=== PATIENT | male | born 1990 | race Caucasian/White ===

== ENCOUNTER 2018-01-14 16:56 | Emergency (ER) | payer MEDICAID ==
[~2018-01-14] VITALS: Ht 188 cm; Wt 84.8 kg
[~2018-01-14 16:56] MED LIST: ALBIPROI INH; AZIT500 PO; Amoxicillin500 MG PO; Augmentin 875-1 EACH PO; CEPH500 PO; CLAR500 PO; HYDGUAL120 PO; MUPI2TO TOP; PROACE100 PO; QUET25 PO; RXPROACE PO; SULTRIDS PO; Zofran Odt4 MG SL; Zofran8 MG PO
[2018-01-14] MEDS ORDERED: CEPH500 PO (17:44)
== END 2018-01-14 17:45 | disposition home or self-care (01) ==
LOC: ER 16:56
DX: S51.812A Laceration without foreign body of left forearm, initial encounter (principal); W45.8XXA Other foreign body or object entering through skin, initial encounter; Z88.5 Allergy status to narcotic agent; Z79.2 Long term (current) use of antibiotics; F17.200 Nicotine dependence, unspecified, uncomplicated
CPT/HCPCS: 12031; 99283

== ENCOUNTER 2018-03-12 11:49 | Emergency (ER) | payer SELFPAY ==
[~2018-03-12] VITALS: Ht 188 cm; Wt 90.7 kg
[2018-03-12] MEDS ORDERED: Norco 5-325 Ta1 EACH PO (12:45)
[2018-03-12] MEDS ORDERED: CRUTCH2 XX (12:46)
== END 2018-03-12 13:13 | disposition home or self-care (01) ==
LOC: ER 11:49
DX: S82.831A Other fracture of upper and lower end of right fibula, initial encounter for closed fracture (principal); W17.89XA Other fall from one level to another, initial encounter; Z88.5 Allergy status to narcotic agent; F17.200 Nicotine dependence, unspecified, uncomplicated
CPT/HCPCS: 29515; 73590; 73610; 99283-25

== ENCOUNTER 2018-03-17 19:23 | Emergency (ER) | payer MEDICAID ==
[~2018-03-17] VITALS: Ht 188 cm; Wt 84.8 kg
[~2018-03-17 19:23] MED LIST changes: +CRUTCH2 XX; +Norco 5-325 Ta1 EACH PO
== END 2018-03-17 22:55 | disposition left against medical advice (07) ==
LOC: ER 19:23
DX: Z53.21 Procedure and treatment not carried out due to patient leaving prior to being seen by health care provider (principal)
CPT/HCPCS: 73590; 73610

== ENCOUNTER 2020-12-18 04:25 | Emergency (ER) | payer SELFPAY ==
[~2020-12-18] VITALS: Ht 175.3 cm; Wt 74.8 kg
== END 2020-12-18 05:10 | disposition home or self-care (01) ==
LOC: ER 04:25
DX: S93.401A Sprain of unspecified ligament of right ankle, initial encounter (principal); F17.200 Nicotine dependence, unspecified, uncomplicated; Z88.5 Allergy status to narcotic agent; X50.1XXA Overexertion from prolonged static or awkward postures, initial encounter
CPT/HCPCS: 99283

== ENCOUNTER 2022-09-02 04:31 | Emergency (ER) | payer SELFPAY ==
[~2022-09-02] VITALS: Ht 188 cm; Wt 90.7 kg
[2022-09-02 07:10] LABS: BASOPHILS ABSOLUTE AUTO 0.06 K/mm3 (0.00-0.23); BASOPHILS PERCENT AUTO 0 % (0-2); EOSINOPHILS ABSOLUTE AUTO 0.28 K/mm3 (0.00-0.68); EOSINOPHILS PERCENT AUTO 2 % (0-6); IMMATURE GRAN ABSOLUTE AUTO 0.06 K/mm3 (0.00-0.10); IMMATURE GRAN PERCENT AUTO 0 % (0-1); LYMPHOCYTES ABSOLUTE AUTO 1.82 K/mm3 (0.84-5.20); LYMPHOCYTES PERCENT AUTO 12 % (21-46); MONOCYTES ABSOLUTE AUTO 0.87 K/mm3 (0.16-1.47); MONOCYTES PERCENT AUTO 6 % (4-13); Mean Corpuscular HGB 29.7 pg (26.0-34.0); Mean Corpuscular HGB Conc 33.3 g/dL (31.5-36.5); Mean Corpuscular Volume 89 fL (80-100); NEUTROPHILS ABSOLUTE AUTO 12.02 K/mm3 (1.96-9.15); NEUTROPHILS PERCENT AUTO 80 % (41-73); Platelet Count 294 K/mm3 (150-400); RDW Coefficient Variation 12.4 % (11.7-14.2); RDW Standard Deviation 40.5 fL (35.1-46.3); Red Blood Cell Count 4.38 M/mm3 (4.30-5.90); White Blood Cell Count 15.11 K/mm3 (4.00-11.30)
[2022-09-02 07:25] LABS: Bun/Creatinine Ratio 26.2 (12.0-20.0); Calcium, Blood 8.7 mg/dL (8.5-10.1); Creatinine, Blood 1.07 mg/dL (0.60-1.20); Potassium, Blood 4.1 mmol/L (3.5-5.5)
[2022-09-02] MEDS ORDERED: CLIN300 PO (09:06)
== END 2022-09-02 09:18 | disposition home or self-care (01) ==
LOC: ER 04:31
PROVIDERS: Emergency Medicine
DX: L03.317 Cellulitis of buttock (principal); L03.311 Cellulitis of abdominal wall; F17.210 Nicotine dependence, cigarettes, uncomplicated; Z88.5 Allergy status to narcotic agent
CPT/HCPCS: 36415; 74177; 80048; 85025; A9270; Q9967

== ENCOUNTER 2022-09-10 01:55 | Emergency (ER) | payer SELFPAY ==
[~2022-09-10] VITALS: Ht 188 cm; Wt 90.7 kg
[~2022-09-10 01:55] MED LIST changes: +CLIN300 PO
== END 2022-09-10 03:47 | disposition home or self-care (01) ==
LOC: ER 01:55
DX: K62.89 Other specified diseases of anus and rectum (principal); K64.4 Residual hemorrhoidal skin tags; F17.210 Nicotine dependence, cigarettes, uncomplicated; Z88.5 Allergy status to narcotic agent
CPT/HCPCS: 99282

== ENCOUNTER 2024-01-02 07:49 | Day surgery (SDC) | payer OTHER ==
[~2024-01-02] VITALS: Ht 188 cm; Wt 110.5 kg
[~2024-01-02 07:49] MED LIST changes: +Lidocaine HCl/Pf 1% 5 ML VIAL ONE; +Ropivacaine 0.5% HCl/Pf 5 MG/ML 20ML VIAL ONE
[2024-01-02] MEDS ORDERED: NS 50 ML IV ONE (08:07)
[2024-01-02] MEDS ORDERED: CeFAZolin Sodium 2,000 MG VIAL ONE (08:07)
[2024-01-02] MEDS ORDERED: Lactated Ringer's 1,000 ML IV ONE (08:34)
[2024-01-02] MEDS ORDERED: Scopolamine Hydrobromide Patch ONE (09:10)
[2024-01-02] MEDS ORDERED: Dexamethasone Sod Phos 10 MG/ML 1ML VIAL ONE (09:24)
[2024-01-02] MEDS ORDERED: Ondansetron HCl 2 MG / ML 2ML Vial ONE (09:24)
[2024-01-02] MEDS ORDERED: propofoL 20 ML IV ONE (09:24)
[2024-01-02] MEDS ORDERED: Ketorolac Tromethamine 30mg Vial ONE (09:24)
[2024-01-02] MEDS ORDERED: FentaNYL Citrate 50 MCG/ML 2 ML Injection ONE (09:24)
[2024-01-02] MEDS ORDERED: Glycopyrrolate 0.2 MG/ML 5ML VIAL ONE (09:26)
[2024-01-02] MEDS ORDERED: Rocuronium Bromide 10 MG/ML 5ML Injection IV ONE (09:26)
[2024-01-02] MEDS ORDERED: Sugammadex Sodium 200 MG/2ML SDV (100 MG/ML) ONE (10:19)
[2024-01-02 10:58] VITALS: BP 124/84
[2024-01-02] MEDS ORDERED: TraMADol HCl 50 MG Tab ONE (11:35)
--- NOTE | 2024-01-02 11:45 | NUR ---
01/02/24 Allan5 Lonny Solis TRAMADOL 50 MG TAB TAKEN AT 1144 FOR ABDOMINAL PAIN AT 6. STATES PAIN IS TOLERABLE FOR DISCHARGE
== END 2024-01-02 11:55 | disposition home or self-care (01) ==
LOC: ORSCSDS 07:49
PROVIDERS: Surgery
PROC: 0WUF0JZ Supplement Abdominal Wall with Synthetic Substitute, Open Approach (ICD-10-PCS; principal; 2024-01-02 09:15)
DX: K42.0 Umbilical hernia with obstruction, without gangrene (principal); Z87.891 Personal history of nicotine dependence
CPT/HCPCS: A9270; C1781; J0690; J1100; J1885; J2001; J2405; J2704; J2795; J3010